=== PATIENT | male | born 1975 | race Caucasian/White ===

== ENCOUNTER 2017-05-14 11:04 | Emergency (ER) | payer BC ==
[2017-05-14 11:09] VITALS: BP 140/87; BMI 27.2
[2017-05-14] MEDS ORDERED: TORADOL 60 MG VIAL IM ONE (11:17)
[2017-05-14] MEDS ORDERED: TORADOL 60 MG VIAL ONE (11:20)
--- NOTE | 2017-05-14 11:20 | DR.HEADACH ---
HPI - Time Seen Time seen: 11:10 - Primary Care Physician Primary Care Physician: NEVILLE - Complaint/Symptoms Chief Complaint Doctors Comments: Left sided jaw pain that radiates to his muslim. He describes this as sharp and stabbing pain. He had just had 2 teeth extracted this morning and his symptoms started after the anagesia wore off. Chief Complaint:: PT. STATES HE GOT 2 TEETH PULLED THIS MORNING FROM DR. KNIGHT IN [place], [place]. PT. STATES WHEN THE NUMBNESS WORE OFF HE BEGAN HAVING SEVERE LEFT SIDED PAIN THAT RADIATES UP TOWARDS THE LEFT SIDE OF HIS HEAD. PT. CRYING & UNABLE TO SIT STILL DUE TO PAIN. Pertinent History: Mouth/Throat/Tooth Prob. - Reviewed Nurses Notes Reviewed: Yes - Source History Provided: Patient - Mode of Arrival Mode of Arrival: Ambulatory - Timing Onset of Chief Complaint: 05/14/17 PMH - PMH Past Medical History: Yes Past Medical History: Hypertension Past Surgical History: Yes Surgical History: Other - Family History History of Family Medical Conditions: Yes Family Medical History: Hypertension - Social History Does patient currently use any type of tobacco product: No Have you used tobacco products in the last 12 months: No Type of Tobacco Use: None Does any household member use tobacco: No Alcohol Use: None Do you use any recreational Drugs:: No Lives With: Spouse Lives Where: Home - infectious screening In the last 2 months have you had wt loss of >10#?: NO Have you had fever, night sweats or hemotysis?: No Have you traveled outside the country in the last 6 months?: No Isolation: Standard ROS - Review of Systems Constitutional: No Symptoms Reported Eyes: No Symptoms Reported ENTM: No Symptoms Reported Respiratoy: No Symptoms Reported Cardiovascular: No Symptoms Reported Gastrointestinal/Abdominal: No Symptoms Reported Genitourinary: No Symptoms Reported Musculoskeletal: Other (Lt. jaw to muslim) Integumentary: No Symptoms Reported Hematologic/Lymphatic: No Symptoms Reported Endocrine: No Symptoms Reported Psychiatric: No Symptoms Reported PE - Vital Signs Vitals: Temperature 97 F Pulse Rate 124 Respiratory Rate 24 Blood Pressure [Right Arm] 163/102 Blood Pressure 140/87 O2 Sat by Pulse Oximetry 100 - General Limitations: No Limitations General Appearance: Alert, In No Apparent Distress - Head Head Exam: Normal Inspection - Eyes Eye exam: Normal Appearance, PERRL, EOMI - ENT ENT Exam: Normal Exam, Normal External Ear Exam, Mucous Membranes Moist, TM's Normal Bilaterally Teeth Exam: Other (s/p extraction of 2 molars on left mandible, blood clot/ packing noted.) Throat Exam: Normal Inspection - Neck Neck Exam: Normal Inspection - Chest Chest Inspection: Normal Inspection - Respiratory Respiratory Exam: Normal Lung Sounds Bilat - Cardiovascular Cardiovascular Exam: Regular Rate, Normal Rhythm, +S1, +S2 - Abdominal Exam Abdominal Exam: Normal Inspection, Normal Bowel Sounds, Soft - Extremities Extremities Exam: Normal Inspection - Back Back Exam: Normal Inspection - Neurologic Neurological Exam: Alert, Oriented X3 - Psychiatric Psychiatric Exam: Normal Affect, Normal Mood - Skin Skin Exam: Warm, Dry, Intact, Normal Color Course - Reevaluation 1st: Improved 2nd: Resolved - Education/Counseling Education/Counseling: Patient, Family, Education Educated On: Treatment, Diagnosis, Prognosis, Needs for Follow Up - Diagnosis Discharge Problem: Toothache, Headache - Discharge Plan Disposition: 01 HOME, SELF-CARE Condition: Stable - Follow ups/Referrals Follow ups/Referrals: Robert LOZADA [Primary Care Provider] - 3 days - Instructions
== END 2017-05-14 12:20 | disposition home or self-care (01) ==
LOC: ER 11:14
DX: K08.89 Other specified disorders of teeth and supporting structures (principal); R51 Headache
CPT/HCPCS: 96372; 99282; J1885